=== PATIENT | female | born 1935 | race Caucasian/White ===

== ENCOUNTER 2017-01-13 14:17 | Emergency (ER) | payer MEDICARE, OTHER ==
[~2017-01-13 14:17] MED LIST: ACET500CAP PO; ALREX0.2 % OPH; AMB10 PO; AMBIEN PO; ASAB PO; ATEN25 PO; ATENOLOL PO; ATV1 PO; B-12 SHOT; B12 INJECTION; B121000P IM; BENTYL10 PO; BIOFREEZE WITH120 GM TOP; CALCIUM 1000 MG; CALCIUM 1200 MG PO; CENTRUM TAB1 TAB PO; CRANASSURE OR; CRANBERRY; CRANBERRY300 MG PO; CYANO1000T PO; CYPROHEPTADINE 4 MG; DIGESTIVE ADVANTAGE PO; DUOVISC IO; FISH-EPA1000 MG PO; FLEX PO; IRON SUPPLEMENT OTC PO; KLOR-CON M2020 MEQ PO; LEVSINTAB SL; MAGNEBIND PO; MAGOX4 PO; MOBIC; MOBIC7.5 PO; MULTIPLE VIT PO; NORCO PO; NORCO1 TA1 PO; NORCO1 TA2 PO; PAX20 PO; PAXIL40 MG PO; PEPTO BISMOL UD30 ML PO; POTASSIUM 99MG PO; PR25 PO; PREV15 PO; PRILO PO; PRIN10 PO; PROZAC PO; RECLAST IV; REFRESH OPH; SINGULAIR1 PO; SYN1 PO; SYN112 PO; SYN88 PO; TEARS NATURA OPH; VICODINTAB PO; VIT C; VITAMIN B-12 PO; VITAMIN B-121000 MC1 SL; VITAMIN D1000 UNI1 PO; VITAMIN D31000 UNIT PO; VITE PO; ZESTRIL10 MG PO; ZINC 15 MG; ZOFRAN4 PO; [UNRECOGNIZED DRUG - OTHER]; [UNRECOGNIZED DRUG - OTHER] PO; [UNRECOGNIZED DRUG - REMARK]
== END 2017-01-13 19:39 | disposition home or self-care (01) ==
LOC: ER 14:17
DX: S32.512A Fracture of superior rim of left pubis, initial encounter for closed fracture (principal); I10 Essential (primary) hypertension; Z88.5 Allergy status to narcotic agent; Z88.8 Allergy status to other drugs, medicaments and biological substances; Z79.899 Other long term (current) drug therapy; W19.XXXA Unspecified fall, initial encounter
CPT/HCPCS: 72125; 73700-LT; 99284